=== PATIENT | male | born 1990 | race Hispanic/Latino ===

== ENCOUNTER 2023-09-08 20:47 | Emergency (ER) | payer OTHER, SELFPAY ==
[2023-09-08] MEDS ORDERED: HYDROcodone/Acetaminophen 10/325 mg Tablet ONE (21:56)
[2023-09-08] MEDS ORDERED: Ketorolac Tromethamine 30 MG/ML VIAL ONE (21:56)
== END 2023-09-08 22:04 | disposition home or self-care (01) ==
LOC: BURERS 20:47
DX: M54.6 Pain in thoracic spine (principal); M54.2 Cervicalgia
CPT/HCPCS: 71045; 72125; J1885